=== PATIENT | female | born 1995 | race Caucasian/White ===

== ENCOUNTER 2016-04-29 21:19 | Emergency (ER) | payer BC, OTHER ==
[~2016-04-29] VITALS: Ht 160 cm; Wt 52.6 kg
[~2016-04-29 21:19] MED LIST: BENADRYL25 MG; FLEXERIL; LOESTRIN 24 FE1 EACH PO; LOESTRIN FE 1-1 EACH; NAPROSYN250 MG; NOHOMEMEDICATIONS; OMEPRAZOLE; PERCOCET 5-3251 EACH PO; VALIUM5 MG PO; ZOFRAN 4 MG ORAL4 M1 DIS
[2016-04-29] MEDS ORDERED: AUGMENTIN 875875 MG PO (21:28)
[2016-04-29] MEDS ORDERED: IBUPROFEN 600600 M1 PO (22:19)
[2016-04-29] MEDS ORDERED: NORCO 10-325 T1 EACH PO (22:19)
[2016-04-29 22:55] VITALS: BP 98/63
== END 2016-04-29 22:56 | disposition home or self-care (01) ==
LOC: ER 21:19
DX: S61.052A Open bite of left thumb without damage to nail, initial encounter (principal); Z88.6 Allergy status to analgesic agent; Z88.8 Allergy status to other drugs, medicaments and biological substances; W55.01XA Bitten by cat, initial encounter; Y93.89 Activity, other specified; Y92.89 Other specified places as the place of occurrence of the external cause; Y99.9 Unspecified external cause status